=== PATIENT | male | born 1970 | race Caucasian/White ===

== ENCOUNTER 2024-06-16 20:48 | Emergency (ER) | payer OTHER ==
[~2024-06-16] VITALS: Ht 185.4 cm; Wt 83.0 kg
[2024-06-16 20:58] VITALS: O2SAT 98
[2024-06-16 22:03] LABS: BASOPHILS % 0.6 % (0.0-2.0); CHLORIDE 102 mEq/L (98-107); EOSINOPHILS % 0.6 % (0.0-5.0); HEMATOCRIT. 42.7 % (42.0-52.0); HEMOGLOBIN. 14.9 g/dL (14.0-18.0); LYMPHOCYTES % 13.9 % (20.0-50.0); MEAN CORPUSCULAR HEMOGLOBIN 34.3 pg (28.0-32.0); MEAN CORPUSCULAR HGB CONC 34.9 g/dL (31.0-37.0); MEAN CORPUSCULAR VOLUME 98.2 fL (80.0-94.0); MEAN PLATELET VOLUME 7.9 fl (7.4-10.4); MONOCYTES % 8.1 % (2.0-8.0); NEUTROPHILS % 76.8 % (40.0-76.0); PLATELET 278 x1000/uL (130-400); POTASSIUM 3.9 mEq/L (3.5-5.1); RED BLOOD CELL COUNT 4.34 mill/uL (4.7-6.1); RED CELL DISTRIBUTION WIDTH 12.7 % (11.6-14.6); SODIUM 140 mEq/L (136-145); WHITE BLOOD COUNT 8.6 x1000/uL (4.5-11.0)
[2024-06-16 22:04] LABS: CALCIUM 9.4 mg/dL (8.7-10.4); CARBON DIOXIDE 29 mEq/L (21-32)
[2024-06-16 22:09] LABS: CREATININE 0.9 mg/dL (0.6-1.3); GLUCOSE 99 mg/dL (70-105); UREA NITROGEN BLOOD 7 mg/dL (9-23)
[2024-06-16 22:12] LABS: TROPONIN I HIGH SENSITIVITY < 4 ng/L (3.0-53)
[2024-06-16] MEDS: ASPIRIN 325MG EC TABLET PO ONE (22:15)
[2024-06-16 23:12] VITALS: TEMP 36.55848
[2024-06-16 23:21] VITALS: BP 137/87; PULSE 66; RESP 14; O2SAT 99
[2024-06-16 23:37] LABS: TROPONIN I HIGH SENSITIVITY 4 ng/L (3.0-53)
== END 2024-06-16 23:57 | disposition home or self-care (01) ==
LOC: ER 20:48
DX: R07.89 Other chest pain (principal); F41.9 Anxiety disorder, unspecified
CPT/HCPCS: 80048; 85025; 84484; 36415; 71045; 99285; Z7610